=== PATIENT | female | born 1990 | race Caucasian/White ===

== ENCOUNTER 2018-03-13 17:26 | Inpatient (IN) | payer OTHER, MEDICAID ==
[~2018-03-13] VITALS: Ht 168.9 cm; Wt 65.8 kg
[~2018-03-13 17:26] MED LIST: ALB17R INH; AZI250 PO; BENZ200C38 PO; CLI150 PO; CYC10 PO; ESCI20TA38 PO; GUAI-334 PO; GUAI480S48 PO; HYCOTUSS; IBU600 PO; IBU800 PO; KET10 PO; KETO10TA PO; L-NO1TBD6 PO; LEVO50TA86 PO; LIB PO; LOR5 PO; LOR5/325 PO; LOR7.5/325 PO; NAP550 PO; NIF10 PO; NIT100 PO; NO ROUTINE MEDS; NO RTN MEDS; ONDA4TAB9 PO; ONDA8TAB94 PO; PENI-22 PO; PER PO; PRE20 PO; PREN-127 PO; PREN-67 PO; PRENATAL; PRO25 PO; PROM-100 PO; SULF-198 PO; [UNRECOGNIZED DRUG - CODE] TOP; [UNRECOGNIZED DRUG - OTHER]
[2018-03-13] MEDS ORDERED: LR(*) 1000 ML BAG 1,000 ML IV SCH ×2 (18:14→18:31)
[2018-03-13] MEDS ORDERED: FAMOTIDINE(*) 20MG/50ML PREMIX 50 ML IVPB PRN ×2 (18:14→18:31)
[2018-03-13] MEDS ORDERED: OXYTOCIN 30 UNIT/D5LR 500 ML 500 ML IV PRN ×3 (18:14→18:31)
[2018-03-13] MEDS ORDERED: fentaNYL CITR 100 MCG/2 ML AMP IVP PRN ×2 (18:15→18:35)
[2018-03-13] MEDS ORDERED: LIDOCAINE 1% LOCAL 300 MG/30ML INJ PRN ×2 (18:15→18:35)
[2018-03-13] MEDS ORDERED: METOCLOPRAMIDE 10 MG/2 ML SDV IVP PRN ×2 (18:15→18:35)
[2018-03-13] MEDS ORDERED: cefOXitin/DEX(*) 2GM/50ML PREM 50 ML IVPB PRN (18:15)
[2018-03-13] MEDS ORDERED: FLUSH 10 ML SYR IVP PRN ×2 (18:15→18:35)
[2018-03-13] MEDS ORDERED: LIDOCAINE/SOD BICARB 8.4% SYR SC PRN ×2 (18:15→18:35)
[2018-03-13] MEDS ORDERED: FENTANYL/ROPIVACAINE 100 ML BAG EPI PRN (18:20)
[2018-03-13] MEDS ORDERED: fentaNYL CITR 100 MCG/2 ML AMP IT PRN (18:20)
[2018-03-13] MEDS ORDERED: LIDOCAINE/PF 2% 200MG/10ML AMP 200 MG/10 ML AMPUL EPI PRN (18:20)
[2018-03-13] MEDS ORDERED: BUPIVACAINE 0.5% INJ 30ML VIAL EPI PRN (18:20)
[2018-03-13] MEDS ORDERED: ePHEDrine 25 MG/5 ML DISP.SYR IVP PRN (18:20)
[2018-03-13] MEDS ORDERED: LIDO/EPI 2% MPF 1:200,000 20ML EPI PRN (18:20)
[2018-03-13] MEDS ORDERED: BUPIVACAINE 0.25% MPF INJ EPI PRN (18:20)
[2018-03-13] MEDS ORDERED: LIDOCAINE/SOD BICARB 8.4% SYR ONE (18:27)
[2018-03-13] MEDS: LR(*) 1000 ML BAG 1,000 ML IV PRN ×2 (18:28→19:34)
[2018-03-13 18:30] VITALS: BP 136/85; Ht 168.9 cm; Wt 65.8 kg
[2018-03-13] MEDS ORDERED: EPIDURAL KEYS XX PRN (18:30)
[2018-03-13] MEDS ORDERED: LEVOTHYROXINE SOD 0.075 MG TAB PO SCH (18:40)
--- NOTE | 2018-03-13 18:40 | History & Physical ---
History of Present Illness Age of Patient: 27 : 4 Para or TPAL: 3 EDC per LMP: Mar 17, 2018 Estimated Gestational Age: 39.3 Chief Complaint Labor History of Present Illness Presents with regular painful contractions and report that she was 4 cm yesterday and had her membranes stripped. She was scheduled for IOL later this week. This uncomplicated. Her most recent child has VACTERL syndrome. This has been reassuring in u/s scanning and no other issues. She does have hypothyroidism and has been treated and stable in this . Past Medical, Surgical, Family and Obstetric Histories reviewed. Please see ACOG chart. History Patient's Blood Type: A Positive Rubella Status: Immune Group B Strep Screen: Negative Obstetrical History: Vag del x 3 Past Medical History: Hypothyroid Prior Appy and choly History chlamydia, HPV Anxiety Allergies: Coded Allergies: promethazine (Verified Adverse Reaction, Mild, ITCHY/JUMPY, 10/08/15) Med Rec Home Meds Reported Medications Levothyroxine Sodium (LEVOTHYROXINE SODIUM) 50 Mcg Tablet, 50 MCG PO QDAY, TAB 02/25/16 Escitalopram Oxalate (LEXAPRO) 20 Mg Tablet, 10 MG PO QDAY, TAB 02/25/16 [[facility]] No Conflict Check 10/08/15 Review of Systems All Systems Reviewed/Normal: Yes, Except as Noted Exam General Exam General Apperance: Alert/Awake/No Acute Distress Eyes: Normal Extraocular Movement & Vison Cardiovascular: Regular Rate and Rhythm Respiratory: No Respiratory Distress Abdomen: Soft, Non-Tender, Non-Distended, Gravid - Non-Tender Integumentary: Skin Intact without Lesions or Rash Psychological: Alert & Oriented X3 Vaginal Discharge/Fluid?: Clear Fluid (AROM) Cervical Dialation: 5.5 Cervical Effacement (%): 100 Cervical Consistency: Soft Cervical Position: Mid Station: -1 Presentation: Vertex Fetus Heart Tone Variabilty: Moderate FHT Accelerations: 15X15 FHT Category: I Medical Decision Making VTE Prophylasis: Adult Deep Vein Thrombosis/Pulmonary: No Pharmacological Contraindicati: Pt at Low Risk for VTE Mechanical Contraindications: Pt at Low Risk for VTE Assessment and Plan EPIC WILLOW ANALYST Plan: Routine Labor Care Problems: (1) Normal labor Assessment & Plan: Expecting AROM with clear fluid. Desires epidural (2) 40 weeks gestation of DORITA MARQUES MD Mar 13, 2018 18:40
[2018-03-13 18:49] LABS: PLATELET COUNT, AUTOMATED 153 K/uL (150-450)
--- NOTE | 2018-03-13 19:57 | Procedure Note ---
Anesthetic Placement Note Anesthesia Plan: LEB Permit for Anesthesia Signed: Yes Anesthesia Technique: Patient Sitting Anesthesia Prep: Chlorhexidine Interspace: L 2-3 Amount Local - cc's: 3 Anesthesia Needle: 17g Touhy/Schliff Anesthesia Attempts: 1 Loss of Resistance: Air Depth of NICOLE (cm): 4 Catheter Insertion (cm): 5 Catheter Type: Jolly - Spring Wound Epidural Dressing: Tegaderm Anesthesia Tray: Lot Number ([id number]), Expiration Date (2019-04-20), Reference Number ([id number]) Comment: Epidural placed without any problems or complications. Anesthesia Medications: Epidural Test Dose: 1.5 Lido/Epi (1:200,000), Dose - mL (5), Time (1919), Negative Epidural Loading Dose: 0.2% Ropivicaine, With Fentanyl 2mcg/ml, Dose - ml (12) , Time (1925) Epidural Infusion: 0.2% Ropivicaine, With Fentanyl 2mcg/ml, Start Time: (1933) Epidural Pump Setting: Bolus Dose - mL (5), Lockout - Minutes (10), Maintenance Rate - mL/hr (10), Maximum per Hour - mL (20) Complications: None DELILAH NICOLE CRNA Mar 13, 2018 19:57
--- NOTE | 2018-03-13 19:59 | Anesthesia Progress Note ---
Progress/Maintenance Anesthesia Note Date: Mar 13, 2018 Anesthesia Note Time: 19:50 Pain Intensity: 0 Pump: On Pump Rate (ML/HR): 10 Motor Level: Bending Knees-Bilateral Dilatation: 6 Position: Right, Tilt DELILAH NICOLE CRNA Mar 13, 2018 19:59
[2018-03-13] MEDS ORDERED: PREN-127 PO (20:00)
[2018-03-13] MEDS ORDERED: FAMO20TA28 PO (20:01)
[2018-03-13] MEDS: LEVOTHYROXINE SOD 0.075 MG TAB PO SCH (20:32)
[2018-03-13] MEDS ORDERED: ONDANSETRON 4 MG/2 ML VIAL IVP PRN (20:50)
[2018-03-13] MEDS ORDERED: ONDANSETRON 4 MG/2 ML VIAL ONE (20:52)
[2018-03-13] MEDS ORDERED: ACETAMINOPHEN 325 MG TAB PO PRN (23:05)
[2018-03-13] MEDS ORDERED: HYDROCORTISONE 2.5% CR 30GM TB PR PRN (23:05)
[2018-03-13] MEDS ORDERED: INFLUENZA VIRUS VAC 0.5 ML SYR IM ONLY ONE (23:05)
[2018-03-13] MEDS ORDERED: LANOLIN OINT 7 GM TUBE TP PRN (23:05)
[2018-03-13] MEDS ORDERED: DIPHTH/TETANUS/ACEL. PERTUSSIS IM ONE (23:05)
[2018-03-13] MEDS ORDERED: MAGNESIUM HYDROXIDE* 30ML UDCP PO PRN (23:05)
[2018-03-13] MEDS ORDERED: BENZOCAINE 20% 60 ML BTL TP PRN (23:05)
[2018-03-13] MEDS ORDERED: MEASLES,MUMP,RUBELLA VAC 0.5ML SC ONE (23:05)
[2018-03-13] MEDS ORDERED: GLYCERIN/WITCH HAZEL LEAF 1 PK TOP PRN (23:05)
--- NOTE | 2018-03-13 23:14 | OB Delivery Note ---
Delivery Note Vaginal Delivery Type: Spont. Vaginal Delivery Delivery Date: Mar 13, 2018 Delivery Time: 22:52 Estimated Gestational Age(wks): 39 Delivery Anesthesia: Epidural Sex: Male [place] Apgars: 1 Minute (9), 5 Minute (10) Repair Needed: Other (none) Notes: Presented in labor and 5 cm upon arrival. AROM with clear fluid and Pitocin augmentation. 6 cm by 2000 and complete dilation at 2230. Pt set up in dorsal lithotomy position and over 2 contractions, pushing delivered head in JORGE position over intact perineum. Placenta delivered intact and spontaneous. No complications. Strategic Client Executive in Attendence: No Copies to: DORITA MARQUES MD, TRAVIS MD Mar 13, 2018 23:14
--- NOTE | 2018-03-13 23:15 | Anesthesia OB Pre-Anes Eval ---
History of Present Illness Anesthesia Start Date: Mar 13, 2018 Anesthesia Start Time: 19:05 OB Anesthesia Diagnosis: spontaneous labor Result Diagram: 03/13/18 1833 Weight (Pounds): 145 Past Medical History Medical History: no pertinent history, other (hypothyroid) Surgical History: appendectomy Previous Anesthesia: general, epidural Attended Childbirth Classes?: No Hx Anesthesia Reactions: No Hx Family Anesthesia Reaction: No Home Meds Reported Medications Famotidine (PEPCID) 20 Mg Tablet, 20 MG PO QDAY, #10 TAB 03/13/18 Vits W-Ca,Fe,Fa(<1MG) ( VITAMINS) 1 Each Tablet, 1 EACH PO DAILY, TAB 03/13/18 Levothyroxine Sodium (LEVOTHYROXINE SODIUM) 50 Mcg Tablet, 75 MCG PO QDAY, TAB 02/25/16 Discontinued Reported Medications Escitalopram Oxalate (LEXAPRO) 20 Mg Tablet, 10 MG PO QDAY, TAB 02/25/16 [[facility]] No Conflict Check 10/08/15 Allergies: Coded Allergies: promethazine (Verified Adverse Reaction, Mild, ITCHY/JUMPY, 10/08/15) Anesthesia OB ROS Airway Class: l GI ROS: clear liquids Last Solids Date: Mar 13, 2018 Last Solids Time: 12:30 Endocrine ROS: thyroid disorder ASA Classification: 2, E Assessment and Plan Anesthesia Plan: LEB Assessment previous epidural without complications. She agrees to proceed. Anesthesia Stop Day: Mar 13, 2018 Anesthesia Stop Time: 23:15 DELILAH NICOLE CRNA Mar 13, 2018 19:45
--- NOTE | 2018-03-13 23:19 | Anesthesia Progress Note ---
Progress/Maintenance Anesthesia Note Date: Mar 13, 2018 Anesthesia Note Time: 23:15 Pain Intensity: 0 Pump: Off Anesthesia Treatment: delivered. pump stopped. DELILAH NICOLE CRNA Mar 13, 2018 23:19
[2018-03-14] MEDS: IBUPROFEN 800 MG TAB PO SCH ×3 (00:52→16:51)
[2018-03-14 02:55] VITALS: BP 111/65
[2018-03-14 07:25] VITALS: BP 114/74
[2018-03-14] MEDS: DOCUSATE CALCIUM 240 MG CAP PO SCH ×2 (09:37→22:34)
[2018-03-14] MEDS: APAP/HYDROCODONE 325/5 TAB PO PRN ×2 (10:32→19:59)
--- NOTE | 2018-03-14 10:47 | OB/GYN Progress Note ---
OB Subjective Progress Notes Subjective Doing well. Pain controlled and ambulating to BR well. Resting comfortable. GI: NEG Nausea : Voiding Well Pain: Mild OB Objective Physical Exam Vital Signs Date Time Temp Pulse Resp B/P (MAP) Pulse Ox O2 Delivery O2 Flow Rate FiO2 03/14/18 07:25 97.9 57 18 114/74 (87) 95 Room Air Intake and Output 03/15/18 07:00 # Voids 1 General Appearance: Alert/Awake/No Acute Distress Eyes: Normal Extraocular Movement & Vison Cardiovascular: Normal Rhythm & Peripheral Pulses, Regular Rate and Rhythm Respiratory: No Respiratory Distress, Clear to Auscultation Abdomen: Soft, Non-Tender, Non-Distended, Fundus Firm, Non-Tender Integumentary: Skin Intact without Lesions or Rash Psychological: Alert & Oriented X3, Appropriate Mood & Affect Result Diagram: 03/14/18 0709 Assessment and Plan SCRAP WHEELER Plan: Routine Post- Care Problems: (1) Normal labor (2) 40 weeks gestation of (3) care and examination immediately after delivery DORITA MARQUES MD Mar 14, 2018 10:47
[2018-03-14 13:40] VITALS: BP 121/79
[2018-03-14 16:50] VITALS: BP 116/89
[2018-03-14 20:00] VITALS: BP 112/72
[2018-03-14] MEDS: LEVOTHYROXINE SOD 0.075 MG TAB PO SCH (22:34)
[2018-03-15] MEDS: IBUPROFEN 800 MG TAB PO SCH ×2 (00:54→09:22)
[2018-03-15 04:00] VITALS: BP 117/57
[2018-03-15] MEDS: APAP/HYDROCODONE 325/5 TAB PO PRN (07:39)
[2018-03-15 07:40] VITALS: BP 112/71
--- NOTE | 2018-03-15 08:39 | OB/GYN Progress Note ---
OB Subjective Progress Notes Subjective Doing well. Pain controlled and bleeding light. Ambulating and voiding well. GI: NEG Nausea : Voiding Well Pain: Mild OB Objective Physical Exam Vital Signs Date Time Temp Pulse Resp B/P (MAP) Pulse Ox O2 Delivery O2 Flow Rate FiO2 03/15/18 04:00 98.1 75 18 117/57 (77) 94 03/14/18 20:00 Room Air General Appearance: Alert/Awake/No Acute Distress Eyes: Normal Extraocular Movement & Vison Cardiovascular: Normal Rhythm & Peripheral Pulses, Regular Rate and Rhythm Respiratory: No Respiratory Distress, Clear to Auscultation Abdomen: Soft, Non-Tender, Non-Distended, Fundus Firm, Non-Tender Integumentary: Skin Intact without Lesions or Rash Psychological: Alert & Oriented X3, Appropriate Mood & Affect Result Diagram: 03/14/18 0709 Assessment and Plan BUSINESS DEVELOPMENT ANALYST Plan: Routine Post- Care Problems: (1) Normal labor (2) 40 weeks gestation of (3) care and examination immediately after delivery Assessment & Plan: Reviewed care and instruction. Precautions agains bleeding and pain. DORITA MARQUES MD Mar 15, 2018 08:39
[2018-03-15] MEDS ORDERED: IBUP800T37 PO (08:40)
[2018-03-15] MEDS ORDERED: LOR5/325 PO (08:40)
--- NOTE | 2018-03-15 08:42 | OB/GYN Discharge Summary ---
Discharge Summary Reason for Hosp/Final Diag: (1) Normal labor (2) 40 weeks gestation of (3) care and examination immediately after delivery Hospital Course & Plan: Reviewed care and instruction. Precautions agains bleeding and pain. Lates Vital Signs Vital Signs Date Time Temp Pulse Resp B/P (MAP) Pulse Ox O2 Delivery O2 Flow Rate FiO2 03/15/18 04:00 98.1 75 18 117/57 (77) 94 03/14/18 20:00 Room Air Weight (Pounds): 145 Result Diagram: 03/14/18 0709 Condition: Improved Discharge: Home, Self Jail Meds Active Scripts Hydrocodone Bit/Acetaminophen (HYDROCODON-ACETAMINOPHEN 5-325) 1 Each Tablet, 1- 2 EACH PO Q4H Y for PAIN, #14 TAB 0 Refills Prov:AMAURI PEMBERTON MD 03/15/18 Reported Medications Famotidine (PEPCID) 20 Mg Tablet, 20 MG PO QDAY, #10 TAB 03/13/18 Vits W-Ca,Fe,Fa(<1MG) ( VITAMINS) 1 Each Tablet, 1 EACH PO DAILY, TAB 03/13/18 Levothyroxine Sodium (LEVOTHYROXINE SODIUM) 50 Mcg Tablet, 75 MCG PO QDAY, TAB 02/25/16 Discontinued Reported Medications Escitalopram Oxalate (LEXAPRO) 20 Mg Tablet, 10 MG PO QDAY, TAB 02/25/16 [-[facility]] No Conflict Check 10/08/15 Follow up Referrals: CREAM RIPENER - In 6 Weeks @ [facility] with Amauri Pemberton Md Follow up with: Dr. Pemberton [phone] Follow up in: 6 wks PP or PO Discharge Diet: As Tolerates Discharge Activity: As Tolerates, No Heavy Lifting x 6 wks, No Heavy Lifting > 10lb, Pelvic Rest Copies to: AMAURI PEMBERTON MD, TRAVIS MD Mar 15, 2018 08:42
[2018-03-15] MEDS: DOCUSATE CALCIUM 240 MG CAP PO SCH (09:22)
[2018-03-15 11:25] VITALS: BP 123/86
--- NOTE | 2018-03-16 02:39 | Anesthesia Post Eval Note ---
Anesthesia Post Eval Note Pt able to participate in Eval: Yes Cardiovascular Status: Satisfactory Respiratory Status: Satisfactory Pain Managment: Satisfactory PO Nausea/Vomiting: Satisfactory Temperature Management: Satisfactory Mental Status: Satisfactory Post-Op Hydration Status: Satisfactory Anesthesia Type: LEB Anesthesia Tolerance: Late entry. Post visit was done on 03-14-2018 around 0900. Pt. doing well no problems noted. DELILAH NICOLE CRNA Mar 16, 2018 02:39
== END 2018-03-15 14:50 | disposition home or self-care (01) | DRG 775 ==
LOC: OB 17:26
PROVIDERS: ADMIT Obstetrics & Gynecology; ATTEND Obstetrics & Gynecology
PROC: 10E0XZZ Delivery of Products of Conception, External Approach (ICD-10-PCS; principal; 2018-03-13)
PROC: 10907ZC Drainage of Amniotic Fluid, Therapeutic from Products of Conception, Via Natural or Artificial Opening (ICD-10-PCS; 2018-03-13)
DX: O99.284 Endocrine, nutritional and metabolic diseases complicating childbirth (principal); O99.344 Other mental disorders complicating childbirth; E03.9 Hypothyroidism, unspecified; F41.9 Anxiety disorder, unspecified; Z37.0 Single live birth; Z3A.39 39 weeks gestation of pregnancy; Z88.8 Allergy status to other drugs, medicaments and biological substances; Z90.49 Acquired absence of other specified parts of digestive tract
CPT/HCPCS: 36415; 85025; 85027; 86850; 86900; 86901; J2405; J2590; J7120

== ENCOUNTER 2018-06-16 01:36 | Inpatient (IN) | payer OTHER, MEDICAID ==
[~2018-06-16] VITALS: Ht 170.2 cm; Wt 83.9 kg
[2018-06-16] VITALS (14 sets, daily range): BP systolic 102–144; BP diastolic 53–83
[~2018-06-16 01:36] MED LIST changes: +FAMO20TA28 PO; +IBUP800T37 PO
[2018-06-16] MEDS ORDERED: MIDAZOLAM 2 MG/2 ML VIAL IVP PRN (06:30)
[2018-06-16] MEDS ORDERED: NORMOSOL R SOLN(*) 1000 ML BAG 1,000 ML IV PRN (06:30)
[2018-06-16] MEDS ORDERED: LIDOCAINE/SOD BICARB 8.4% SYR ID ONE (06:30)
[2018-06-16] MEDS ORDERED: cefOXitin/DEX(*) 2GM/50ML PREM 50 ML IVPB ONE (10:15)
[2018-06-16] MEDS ORDERED: PHENAZOPYRIDINE 200 MG TAB PO ONE (10:15)
[2018-06-16] MEDS ORDERED: FAMOTIDINE 20 MG/50 ML PREMIX IVPB ONE (10:50)
[2018-06-16 12:07] LABS: PLATELET COUNT, AUTOMATED 307 K/uL (150-450)
[2018-06-16] MEDS ORDERED: fentaNYL CITR 250 MCG/5 ML AMP ONE (12:22)
[2018-06-16] MEDS ORDERED: PROPOFOL EMUL(*) 10MG/ML 20 ML 20 ML ONE (12:24)
[2018-06-16] MEDS ORDERED: LIDOCAINE MPF 1% 5 ML VIAL ONE (12:24)
[2018-06-16] MEDS ORDERED: DEXAMETHASONE SOD PHOS 10MG/ML ONE (12:24)
[2018-06-16] MEDS ORDERED: ONDANSETRON 4 MG/2 ML VIAL ONE (12:24)
[2018-06-16] MEDS ORDERED: KETAMINE HCL 200 MG/20 ML MDV ONE (12:25)
[2018-06-16] MEDS ORDERED: FAMOTIDINE 20 MG TAB PO ONE (12:25)
[2018-06-16] MEDS ORDERED: SCOP1PAT16 TOP (12:45)
[2018-06-16] MEDS ORDERED: NS 0.9% 20 ML SDV 20 ML ONE (13:04)
[2018-06-16] MEDS ORDERED: HALOPERIDOL LACT 5 MG/ML VIAL IM ONE (13:07)
[2018-06-16] MEDS ORDERED: ACETAMINOPHEN(*)1000 MG/100 ML 100 ML IVPB ONE (13:07)
[2018-06-16] MEDS ORDERED: IBUP800T37 PO (13:26)
[2018-06-16] MEDS ORDERED: OXYC-865 PO (13:26)
[2018-06-16] MEDS ORDERED: DOCU-416 PO (13:27)
[2018-06-16] MEDS ORDERED: ROPIVACAINE 0.2% 20 ML VIAL ONE (13:47)
[2018-06-16] MEDS ORDERED: HYDROmorphone HCL 2 MG/ML SDV ONE (14:03)
[2018-06-16] MEDS ORDERED: ESTROGENS CONJ VAG CREAM 30 GM TUBE PV ONE (14:22)
[2018-06-16] MEDS ORDERED: NS(*) 0.9% 100 ML BAG 100 ML ONE (14:22)
[2018-06-16] MEDS ORDERED: VASOPRESSIN 20 UNIT/ML VIAL ONE (14:22)
[2018-06-16] MEDS ORDERED: SUGAMMADEX SOD 200 MG/2 ML SDV ONE (16:27)
[2018-06-16] MEDS ORDERED: KETOROLAC 30 MG/ML VIAL ONE (16:52)
[2018-06-16] MEDS ORDERED: SULF-198 PO (17:13)
[2018-06-16] MEDS ORDERED: SIMETHICONE 80 MG CHEW CHEW PRN (17:15)
[2018-06-16] MEDS ORDERED: ZOLPIDEM TARTRATE 10 MG TAB PO PRN (17:15)
[2018-06-16] MEDS ORDERED: PROMETHAZINE 25 MG/ML 1 ML AMP IVP PRN (17:15)
--- NOTE | 2018-06-16 17:25 | Post Operative Note ---
Operative Note - TILE FINISHER Operative Day Date: Jun 16, 2018 Time: 17:23 Physicians Surgeon: Niecy Trace Evidence Technician: Araceli Velazquez Anesthesia: GETA Diagnosis Pre-Op Diagnosis: Dysmenorrhea Menometrorrhagia Rectocele THALIA Post-Op Diagnosis: same Procedure Procedure(s): RATLH bilateral salpingectomy cystoscopy posterior colporrhaphy Transobturator midurethropexy sling Specimen Removed:(Maybe N/A): uterus, tubes Complications: [id number] Fluids Fluids: 2000 ml Estimated Blood Loss: 100 ml Dictated Date OP Note Dictated: Jun 16, 2018 Time OP Note Dictated: 17:25 Copies to: DORITA MARQUES MD ; DORITA MARQUES MD Jun 16, 2018 17:25
[2018-06-16] MEDS ORDERED: fentaNYL CITR 100 MCG/2 ML AMP ONE ×2 (17:27→17:48)
[2018-06-16] MEDS: DLR(*) 1000 ML BAG 1,000 ML IV PRN (19:34)
--- NOTE | 2018-06-16 20:01 | OPERATIVE REPORT 1 ---
EVENT DATE: June 16, 2018 SURGEON: Amauri Pemberton MD ANESTHESIOLOGIST: Jadon Londono MD ANESTHESIA: General endotracheal. HITCH TECHNICIAN: Araceli Velazquez PA-C PREOPERATIVE DIAGNOSES 1. Stress urinary incontinence. 2. Outlet dysfunction and constipation. 3. 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 4. Rectocele. 5. Secondary dysmenorrhea. 6. Excessive and frequent irregular menstruation. POSTOPERATIVE DIAGNOSES 1. Stress urinary incontinence. 2. Outlet dysfunction and constipation. 3. 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 4. Rectocele. 5. Secondary dysmenorrhea. 6. Excessive and frequent irregular menstruation. PROCEDURES PERFORMED 1. Robotic-assisted total laparoscopic hysterectomy. 2. Bilateral salpingectomy. 3. Diagnostic cystoscopy. 4. Posterior colporrhaphy. 5. Transobturator sling mid urethropexy. ESTIMATED BLOOD LOSS 100 mL FLUIDS 2000 mL IV crystalloid URINE OUTPUT Clear. FINDINGS Enlarged retroflexed uterus. Normal-appearing ovaries, tubes. Normal right upper quadrant. Bladder without visible injuries, and ureteral patency confirmed post procedure bilaterally. PROCEDURE IN DETAIL The patient was brought to the operating room with a working IV, placed in the dorsal supine position. She was placed under general endotracheal anesthesia and then prepped and draped in the usual sterile fashion. She was moved to the dorsal lithotomy position. A weighted speculum was placed in the vagina. The cervix was grasped on the anterior lip with a single tooth tenaculum. It was sounded to a depth of 8 to 9 cm, retroverted. A large VCare uterine manipulating device was selected and assembled. The cervix was dilated to a size 8 Hegar dilator. The VCare was passed through the cervix into the uterus, bulb inflated and secured. All instruments were then removed. The green VCare colpotomy cup was sutured against the cervix. The blue pneumoperitoneum cup was approximated against the green and locked into position. A Cuadra catheter was placed. Legs were brought back to the supine position, and gloves were changed. The target anatomy was more than 12 cm below the umbilicus; therefore, an umbilical 8 mm stab incision was made after infiltrating the 0.2% Naropin. A Veress needle was passed through this incision while stabilizing the anterior abdominal wall. A pneumoperitoneum was created to an intra-abdominal pressure of 20 mmHg. The laparoscope was inserted through this port, and the pelvis and abdomen were inspected with the above findings noted. Additional ports were placed as follows: Robotic 8 mm port 8 cm left lateral to the umbilicus, and 7 cm lateral to this one an 11 mm entry level assistant manager port. There were two additional 8 mm robotic ports placed right lateral at the umbilicus spaced at 8 cm apart. Each were placed under direct visualization under a similar technique and without incident. The patient was then moved to the Trendelenburg position. Bowel was moved away. The pelvis was inspected. Normal-appearing ovaries bilaterally. Enlarged uterus, retroflexed. Probable uterine varicosities as there did appear to be pelvic congestion. The robot was then brought into position, and the #2 port was docked, and the camera was placed. It was brought into the abdomen, and target anatomy was visualized. A targeting procedure was performed and completed. The remaining arms were docked, and instruments were assembled and passed into the abdomen under direct visualization with the scope. Once all in place, I scrubbed out from the sterile field and presented at the console. Hysterectomy proceeded as follows: The right fallopian tube was grasped and elevated. It was dissected away from the mesosalpinx connection using the vessel sealer up to the utero-ovarian ligament which was cauterized and transected with the vessel sealer. The round ligament was then cauterized and transected, entering the broad ligament which was into anterior and posterior leaflets. The anterior leaflet was followed along anteriorly, deflecting the bladder away from the colpotomy cup that was bulging beneath. The posterior peritoneum was stripped away, skeletonizing the uterine vasculature in that location. The uterine vessels were then cauterized and transected with the Gyrus device on a perpendicular angle. Parallel bites were then taken along the length of the uterus and the cervix, dissecting the uterine vasculature away from the uterus. Once we reached the colpotomy cup, an anterior colpotomy was performed, and we proceeded on the left side in a likewise fashion, dissecting the fallopian tube away from the mesosalpinx, transecting the utero-ovarian ligament and the round ligament with the vessel sealer, and entering the broad ligament. The anterior leaflet was dissected, completing the anterior dissection and pushing the bladder well away from the operative area. Posteriorly, the peritoneum was taken down to the uterosacral ligament, and the vessels were skeletonized. The uterine vasculature was taken at a perpendicular angle, cauterized with the vessel sealer, and transected, and then parallel bites along the length of the uterus and cervix were performed to further dissect away the uterine vasculature. The colpotomy incision was further extended to the left side and in a circumferential fashion completed through the uterosacral ligaments posteriorly and around to the other side, freeing the uterus from the vaginal connection. The uterus was then removed through the vagina, and irritation and suction were performed. There were some small bleeders along the vaginal angle on both sides which received a light amount of bipolar cautery. An 0 Vicryl was then used to close the angle stitches in a [id number] fashion, incorporating the ipsilateral uterosacral ligament. This achieved hemostasis in both locations. The remaining vaginal cuff was repaired with a 2-0 V-Loc suture, and the pelvis was irrigated and suctioned dry. No visible bleeders. No visible complications. Therefore, this portion of the procedure was completed, and I scrubbed back into the sterile field while the abdominal incisions were repaired with a single interrupted stitch of the fascia for the 11 mm port, utilizing the Arron-Ramesh device. Pneumoperitoneum was suctioned out, and the remaining skin incisions were repaired with 4-0 Monocryl simple subdermal. Diagnostic cystoscopy was performed at this time to confirm ureteral patency which was confirmed bilaterally. No visible bladder injuries. The Cuadra catheter was replaced. We proceeded with the posterior repair. The incision was marked along the length of the defect in the midline, and a aramis-shaped wedge resection of the perineum was performed to complete a perineoplasty. The incision along the length of the vagina was dissected after infiltrating with diluted pitressin solution. Dissection laterally revealed the defect and an excellent exposure of the endopelvic fascia. A single pursestring stitch was performed to reduce the size of the defect, followed by Melissa plication stitches along its entire length. A finger then was inserted into the rectum to palpate for site-specific repair, and there were no areas that were deficient. Therefore, gloves were changed. Excess vagina was trimmed away, and the vagina was repaired with a 2-0 Vicryl in a running locking stitch. The perineoplasty was completed as is typical for a second-degree obstetrical repair. At this point, a weighted speculum was placed in the vagina. The Cuadra catheter was used to identify the mid urethra. A linear incision approximately 2 cm in length was made in the mid urethra and dissected laterally after bringing the legs to a 45-degree angle, dissected laterally towards the transobturator fossa. A puncture incision was made overlying the transobturator fossa level with the clitoris on both sides. Once dissection was complete, the sling hook was passed, palpating internally through the transobturator membrane in the medial pubic rami rotated to a 45- degree angle and continued along its length into the vaginal dissection. The sling material was attached to this introducing hook and pulled back through. The same procedure was followed on the contralateral side. Cuadra catheter was again removed, and diagnostic cystoscopy was again performed to confirm no bladder punctures. Once confirmed the bladder was intact without injury, Cuadra catheter was replaced, and the mesh was pulled back through. One cm segment of folded mesh was grasped with a Umu clamp and approximated against the Cuadra catheter while the remaining mesh was tensioned. Once this was released, this easily allowed the passage of a curved Rinaldi scissor beneath the urethra. Therefore, it was tension-free, but approximated such that it would correct any stress urinary incontinence. The remaining vaginal incision was repaired with a 2-0 Vicryl in a running locking stitch. Inspection of the vaginal incision again revealed a few small bleeders along the incision edge which received a [id number] stitch of 2-0 Vicryl in three separate locations. Once hemostatic, the vagina was packed with a Kerlix sponge moistened with Premarin cream. The groin puncture incisions were covered with Dermabond skin adhesive. Cuadra catheter was left indwelling and to gravity. Her legs were brought back to the supine position. She was awakened from general anesthesia in stable condition and taken to Recovery. Sponge, lap, needle, and instrument counts were all correct times three. ADELE
[2018-06-16] MEDS ORDERED: NS 0.9% IVPB SCH (21:40)
[2018-06-16] MEDS ORDERED: TRANEXAMIC AC IVPB SCH (21:40)
[2018-06-16] MEDS: FAMOTIDINE 20 MG TAB PO SCH (22:18)
[2018-06-16] MEDS: DOCUSATE CALCIUM 240 MG CAP PO SCH (22:18)
[2018-06-16] MEDS: ONDANSETRON 4 MG/2 ML VIAL IV PRN (22:43)
[2018-06-16] MEDS: KETOROLAC 30 MG/ML VIAL IVP SCH (22:43)
[2018-06-17] VITALS (13 sets, daily range): BP systolic 97–124; BP diastolic 46–77; Ht 170.2 cm; Wt 83.9 kg
[2018-06-17 01:06] LABS: PLATELET COUNT, AUTOMATED 253 K/uL (150-450)
[2018-06-17] MEDS: DLR(*) 1000 ML BAG 1,000 ML IV PRN ×4 (01:13→22:02)
[2018-06-17] MEDS: ACETAMINOPHEN 325 MG TAB PO PRN ×2 (01:44→05:40)
[2018-06-17] MEDS: KETOROLAC 30 MG/ML VIAL IVP SCH ×2 (05:04→11:21)
[2018-06-17] MEDS: LEVOTHYROXINE SOD 0.075 MG TAB PO SCH (05:39)
[2018-06-17] MEDS: ONDANSETRON 4 MG/2 ML VIAL IV PRN ×3 (05:40→20:05)
[2018-06-17 06:04] LABS: PLATELET COUNT, AUTOMATED 263 K/uL (150-450)
[2018-06-17] MEDS: HYDROmorphone HCL 2 MG TAB PO PRN ×3 (07:48→19:01)
[2018-06-17] MEDS ORDERED: LIDOCAINE 1% LOCAL 300 MG/30ML 0 ML ONE (08:36)
[2018-06-17] MEDS: FAMOTIDINE 20 MG TAB PO SCH ×2 (09:00→21:37)
--- NOTE | 2018-06-17 09:28 | OB/GYN Progress Note ---
OB Subjective Progress Notes Subjective had more than average bleeding last night, presumed to be from vaginal surgical edges from sling. Pressure placed on external genitalia and trexaminic acid ordered to assist with clotting. This morning report was that she is light headed to sit up. Pt reports headache and left side abdominal pain near the captain's assistant port, which is common. Vitals have been stable through night and good urine output. Pt dropped hgb from 13.5 to 10.5 today with dilution and blood loss. Pt has been nauseated and had vomited several times in the night. GI: NEG Nausea : Voiding Well Pain: Moderate OB Objective Physical Exam Vital Signs Date Time Temp Pulse Resp B/P (MAP) Pulse Ox O2 Delivery O2 Flow Rate FiO2 06/17/18 05:12 70 97 06/17/18 05:11 106/54 (71) Nasal Cannula 0.5 06/17/18 03:08 98.4 16 Intake and Output 06/17/18 07:00 Intake Total 7672 ml Output Total 1980 ml Balance 5692 ml Intake Oral 200 ml IV Total 4522 ml Other 2950 ml Output Urine Total 1275 ml Emesis 225 ml Estimated Blood Loss 380 ml Other 100 ml # Emeses 4 General Appearance: Alert/Awake/No Acute Distress Neurological: No Gross deficits Cardiovascular: Normal Rhythm & Peripheral Pulses Respiratory: No Respiratory Distress Abdomen: Soft, Non-Tender, Non-Distended (appropriate surgical tenderness) Incision: Clean, Dry, Intact, Dermabond : Other (vaginal packing soaked with clot that came out after, all dark blood) Extremities: No Cyanosis,Clubbing or Edema Integumentary: Skin Intact without Lesions or Rash Psychological: Alert & Oriented X3 Result Diagram: 06/17/18 0520 Assessment and Plan Problems: (1) Other specified aftercare following surgery Assessment & Plan: s/p RATLH, BS, Posterior repair, TO sling Removing vaginal packing revealed more bleeding than I am comfortable with. Pt taken to the procedure room for internal exam. Speculum exam revealed old clot in the vagina which was suctioned out. Suture edges and vaginal cuff inspected and no significant active bleeding seen. No pooling of blood noted. All in cisions intact. Vagina packed again with Kerlex sponge moistened with Premarin cream. Will obtain u/s of pelvis looking for free fluid or signs of bleeding. My suspicion is her orthostatic symptoms are from preexisting anemia worsened by dilution and the blood loss vaginally from suture edges or cuff which is now clotting off. Will monitor for more anemia and consider transfusion if continues symptomatic. Anticipate removing packing tonight or in AM. (2) History of robot-assisted laparoscopic hysterectomy DORITA MARQUES MD Jun 17, 2018 09:28
[2018-06-17] MEDS ORDERED: ESTROGENS CONJ VAG CREAM 30 GM TUBE PV ONE (09:30)
[2018-06-17] MEDS ORDERED: TRANEXAMIC AC IVPB ONE (10:00)
[2018-06-17] MEDS ORDERED: NS 0.9% IVPB ONE (10:00)
[2018-06-17] MEDS: DOCUSATE CALCIUM 240 MG CAP PO SCH ×2 (10:10→21:37)
--- NOTE | 2018-06-17 10:36 | RADIOLOGY IMAGING REPORT ---
FACILITY: [facility] [place] PATIENT NAME: Abiola Ritchie : 1990 MR: [id number] V: [id number] EXAM DATE: ORDERING PHYSICIAN: DORITA MARQUES TECHNOLOGIST: Location: [facility] [place] Patient: Abiola Ritchie : 1990 Visit/Account:[id number] Date of Sevice: 06/17/2018 PELVIC LTD OR F/U HISTORY: Postoperative bleeding, s/p robotic hyst, vag repair TECHNIQUE: Transabdominal ultrasound pelvis. COMPARISON: Pelvic ultrasound October 18, 2010 FINDINGS: Uterus is surgically absent. There is a hypoattenuating collection within the pelvic cul-de-sac measuring 3.5 x 3.8 x 5.3 cm which could represent clot. There is no internal vascular flow. There is a curvilinear echogenic structu re seen anteriorly with some acoustic shadowing may represent surgical sutures. Ovaries: Right - 4.4 x 1.8 x 3.8 cm Left - 3.2 x 3.4 x 1.6 cm Blood flow is documented in each ovary by duplex Doppler ultrasound. Adnexa: Grossly unremarkable. Free pelvic fluid: None. IMPRESSION: Patient is status post hysterectomy. There is a 3.5 x 3.8 x 5.3 cm hypoattenuating collection in the pelvic cul-de-sac which could represent clot. There is no internal vascular flow. Report Dictated By: Rea Shetty MD at 06/17/2018 10:26 AM Report E-Signed By: Rea Shetty MD at 06/17/2018 10:32 AM WSN:[email or web address]
[2018-06-17 12:56] LABS: PLATELET COUNT, AUTOMATED 241 K/uL (150-450)
[2018-06-17] MEDS: IBUPROFEN 800 MG TAB PO PRN (18:06)
[2018-06-17 18:08] LABS: PLATELET COUNT, AUTOMATED 223 K/uL (150-450)
[2018-06-18] VITALS (12 sets, daily range): BP systolic 108–127; BP diastolic 50–76
[2018-06-18 00:10] LABS: PLATELET COUNT, AUTOMATED 178 K/uL (150-450)
[2018-06-18] MEDS: IBUPROFEN 800 MG TAB PO PRN (03:31)
[2018-06-18] MEDS: HYDROmorphone HCL 2 MG TAB PO PRN ×2 (04:26→12:14)
[2018-06-18] MEDS: ONDANSETRON 4 MG/2 ML VIAL IV PRN ×2 (05:18→21:48)
[2018-06-18 05:52] LABS: PLATELET COUNT, AUTOMATED 176 K/uL (150-450)
[2018-06-18] MEDS: LEVOTHYROXINE SOD 0.075 MG TAB PO SCH (06:05)
[2018-06-18] MEDS: DLR(*) 1000 ML BAG 1,000 ML IV PRN (06:05)
[2018-06-18] MEDS ORDERED: ACETAMINOPHEN(*)1000 MG/100 ML 100 ML IVPB ONE (08:30)
[2018-06-18] MEDS: FERROUS SULFATE 325 MG TAB PO SCH (09:00)
[2018-06-18] MEDS: DOCUSATE CALCIUM 240 MG CAP PO SCH ×2 (09:00→20:48)
[2018-06-18] MEDS: FAMOTIDINE 20 MG TAB PO SCH ×2 (09:00→20:49)
[2018-06-18] MEDS ORDERED: INFLUENZA VIRUS VAC 0.5ML SYR IM ONLY ONE (09:00)
[2018-06-18] MEDS ORDERED: METOCLOPRAMIDE 10 MG TAB PO PRN (09:15)
--- NOTE | 2018-06-18 09:21 | OB/GYN Progress Note ---
OB Subjective Progress Notes Subjective Surgical pain is much better now, and has had minimal bleeding vaginally. Still orthostatic and now this AM withe severe headache. Feels lightheaded often. Has only gotten up in the room. Cuadra catheter in place. GI: POS Nausea (especially with Percocet) : Voiding Well (per catheter) Pain: Mild OB Objective Physical Exam Vital Signs Date Time Temp Pulse Resp B/P (MAP) Pulse Ox O2 Delivery O2 Flow Rate FiO2 06/18/18 03:23 98.6 16 108/50 (69) 91 Room Air 06/17/18 23:05 81 0.5 Intake and Output 06/18/18 07:00 Intake Total 3774 ml Output Total 2850 ml Balance 924 ml Intake Oral 370 ml IV Total 3404 ml Output Urine Total 2850 ml General Appearance: Alert/Awake/No Acute Distress Neurological: No Gross deficits Cardiovascular: Normal Rhythm & Peripheral Pulses, Regular Rate and Rhythm Respiratory: No Respiratory Distress, Clear to Auscultation Abdomen: Soft, Non-Tender, Non-Distended (appropriate surgical tenderness) Incision: Clean, Dry, Intact, Dermabond : Other (repeat vaginal packing removed with scant blood stain) Extremities: No Cyanosis,Clubbing or Edema Integumentary: Skin Intact without Lesions or Rash Psychological: Alert & Oriented X3 Result Diagram: 06/18/18 0522 Assessment and Plan Problems: (1) Other specified aftercare following surgery (2) History of robot-assisted laparoscopic hysterectomy (3) Anemia due to acute blood loss Assessment & Plan: Discussed transfusion. Her symptoms should improve, energy levels and ability to care for her as well as headaches. She agrees and desires. Transfusion risk of 1/300,000 of blood born infection but more often for acute allergic reaction. (4) Anemia due to chronic blood loss DORITA MARQUES MD Jun 18, 2018 09:21
[2018-06-18] MEDS ORDERED: diphenhydrAMINE 50 MG/ML VIAL IVP ONE (09:30)
[2018-06-18] MEDS ORDERED: NS(*) 0.9% 500 ML BAG 500 ML ONE (11:25)
[2018-06-18] MEDS: ACETA/BUTAL/CAFF 325/50/40 TAB PO PRN ×2 (14:29→20:49)
[2018-06-18 20:48] LABS: PLATELET COUNT, AUTOMATED 198 K/uL (150-450)
[2018-06-18] MEDS ORDERED: FERROUS SULFATE 325 MG TAB PO ONE (20:50)
[2018-06-18] MEDS ORDERED: ACETAMINOPHEN 500 MG TAB PO ONE (21:15)
[2018-06-18] MEDS ORDERED: ACETA/BUTAL/CAFF 325/50/40 TAB PO PRN (21:25)
[2018-06-18] MEDS ORDERED: AMPICILLIN/SULBACTAM 3 GM VIAL ONE (22:40)
[2018-06-18] MEDS ORDERED: NS(*) 0.9% 100 ML BAG 100 ML ONE (22:40)
[2018-06-18] MEDS: AMPICILLIN/SULBACT (*) 3 GM VL 3 GM in NS(*) 0.9% 100 ML BAG 100 ML IVPB SCH (22:59)
[2018-06-19] MEDS ORDERED: ACETAMINOPHEN 500 MG TAB PO ONE (03:15)
[2018-06-19] MEDS: AMPICILLIN/SULBACT (*) 3 GM VL 3 GM in NS(*) 0.9% 100 ML BAG 100 ML IVPB SCH ×2 (03:52→10:00)
[2018-06-19 03:56] VITALS: BP 107/64
[2018-06-19] MEDS: LEVOTHYROXINE SOD 0.075 MG TAB PO SCH (06:18)
[2018-06-19 07:23] LABS: PLATELET COUNT, AUTOMATED 186 K/uL (150-450)
[2018-06-19] MEDS: DOCUSATE CALCIUM 240 MG CAP PO SCH (09:00)
[2018-06-19] MEDS: FAMOTIDINE 20 MG TAB PO SCH (09:00)
[2018-06-19] MEDS: FERROUS SULFATE 325 MG TAB PO SCH (09:00)
[2018-06-19 09:30] VITALS: BP 107/92
[2018-06-19] MEDS: ONDANSETRON 4 MG/2 ML VIAL IV PRN (10:36)
--- NOTE | 2018-06-19 11:06 | OB/GYN Progress Note ---
OB Subjective Progress Notes Subjective Doing much better. Still gets a little light headed when gets up and consequently, a little nauseated. Zofran helps though. Voiding well with a urine stream not as strong as when she came. Feeling able to go home. GI: POS Nausea (OFF AND ON) : Voiding Well Pain: Mild OB Objective Physical Exam Vital Signs Date Time Temp Pulse Resp B/P (MAP) Pulse Ox O2 Delivery O2 Flow Rate FiO2 06/19/18 09:30 98.6 82 16 107/92 (97) 94 Room Air 06/19/18 03:56 1.0 Intake and Output 06/19/18 07:00 Intake Total 1840 ml Output Total 4000 ml Balance -2160 ml Intake Oral 440 ml IV Total 900 ml Blood Product 500 ml Output Urine Total 4000 ml General Appearance: Alert/Awake/No Acute Distress Neurological: No Gross deficits Cardiovascular: Normal Rhythm & Peripheral Pulses, Regular Rate and Rhythm Respiratory: No Respiratory Distress, Clear to Auscultation Abdomen: Soft, Non-Tender, Non-Distended (less tenderness than before) Incision: Clean, Dry, Intact, Dermabond : Other (repeat vaginal packing removed with scant blood stain) Extremities: No Cyanosis,Clubbing or Edema Integumentary: Skin Intact without Lesions or Rash Psychological: Alert & Oriented X3 Result Diagram: 06/19/18 0650 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 Home on iron, pain medication prn, stool softeners, and instructions and precautions. F/U in 2 weeks in office. (2) History of robot-assisted laparoscopic hysterectomy (3) Anemia due to acute blood loss (4) Anemia due to chronic blood loss DORITA MARQUES MD Jun 19, 2018 11:06
[2018-06-19] MEDS ORDERED: ONDA4VIA3 PO (11:09)
[2018-06-19] MEDS ORDERED: HYDR2TAB4 PO (11:09)
[2018-06-19] MEDS ORDERED: FERR-53 PO (11:09)
--- NOTE | 2018-06-19 11:14 | OB/GYN Discharge Summary ---
Discharge Summary Reason for Hosp/Final Diag: (1) Other specified aftercare following surgery Hospital Course & Plan: Reviewed discharge precautions. Home on iron, pain medication prn, stool softeners, and instructions and precautions. F/U in 2 weeks in office. (2) History of robot-assisted laparoscopic hysterectomy (3) Anemia due to acute blood loss (4) Anemia due to chronic blood loss Hospital Course & Plan: s/p transfusion of 2 units PRBCs Lates Vital Signs Vital Signs Date Time Temp Pulse Resp B/P (MAP) Pulse Ox O2 Delivery O2 Flow Rate FiO2 06/19/18 09:30 98.6 82 16 107/92 (97) 94 Room Air 06/19/18 03:56 1.0 Weight (Pounds): 185 Result Diagram: 06/19/18 0650 Condition: Improved Discharge: Home, Self Detention Meds Active Scripts Hydromorphone Hcl (HYDROMORPHONE HCL) 2 Mg Tablet, 2 MG PO Q6H PRN for PAIN, #30 TAB 0 Refills Prov:DORITA PEMBERTON MD 06/19/18 Sulfamethoxazole/Trimet 800-160 Mg Tab (BACTRIM DS TABLET) 1 Each Tablet, 1 TAB PO Q12H for 3 Days, #6 TAB Prov:MARK PATEL 06/16/18 Docusate Sodium (COLACE) 100 Mg Capsule, 100 MG PO BID, #20 CAPSULE Prov:MARK PATEL 06/16/18 Oxycodone Hcl/Acetaminophen (PERCOCET 5-325 MG TABLET) 1 Each Tablet, 1 EACH PO Q4-6H PRN for PAIN, #20 TAB 0 Refills TAKE 1 TABLET NEEDED FOR PAIN - NO CLOSER THAN EVERY 4-6 HOURS. Prov:MARK PATEL 06/16/18 Ibuprofen (IBUPROFEN) 800 Mg Tablet, 1 TAB PO Q8H, #30 TAB 0 Refills Take with food every 8 hours. Prov:MARK PATEL 06/16/18 Ibuprofen (IBUPROFEN) 800 Mg Tablet, 800 MG PO Q8H PRN for PAIN, #30 TAB 0 Refills Prov:DORITA PEMBERTON MD 03/15/18 Reported Medications Scopolamine (Scopolamine) 1 Mg/3 Day Patch.td.3, 1 PATCH TOP ONCE 06/16/18 Vits W-Ca,Fe,Fa(<1MG) ( VITAMINS) 1 Each Tablet, 1 EACH PO DAILY, TAB 03/13/18 Levothyroxine Sodium (LEVOTHYROXINE SODIUM) 50 Mcg Tablet, 75 MCG PO QDAY, TAB 02/25/16 Follow up Referrals: [facility] - In Two Weeks @ [facility] with DORITA PEMBERTON MD Follow up with: Dr. Pemberton [phone] Follow up in: 6 wks PP or PO, 2 wks PO Discharge Diet: As Tolerates Discharge Activity: As Tolerates, No Heavy Lifting x 6 wks, No Heavy Lifting > 10lb, Pelvic Rest Copies to: DORITA PEMBERTON MD ; DORITA PEMBERTON MD Jun 19, 2018 11:14
[2018-06-19] MEDS ORDERED: AMPICILLIN/SULBACT (*) 3 GM VL 3 GM in NS(*) 0.9% 100 ML BAG 100 ML IVPB SCH (22:00)
== END 2018-06-19 11:10 | disposition home or self-care (01) | DRG 742 ==
LOC: OR 01:36 → INTOOBSV 18:30 → UNDOADMOB 18:30 → PED 18:30 → OBSVTOIN 18:30 → UNDODISOB 06-19 11:10
PROVIDERS: ADMIT Obstetrics & Gynecology; ATTEND Obstetrics & Gynecology
PROC: 0USG8ZZ Reposition Vagina, Via Natural or Artificial Opening Endoscopic (ICD-10-PCS; 2018-06-16)
PROC: 8E0W4CZ Robotic Assisted Procedure of Trunk Region, Percutaneous Endoscopic Approach (ICD-10-PCS; 2018-06-16)
PROC: 0JQC3ZZ Repair Pelvic Region Subcutaneous Tissue and Fascia, Percutaneous Approach (ICD-10-PCS; 2018-06-16)
PROC: 0UTC4ZZ Resection of Cervix, Percutaneous Endoscopic Approach (ICD-10-PCS; 2018-06-16)
PROC: 0UT94ZZ Resection of Uterus, Percutaneous Endoscopic Approach (ICD-10-PCS; principal; 2018-06-16 13:50)
PROC: 0UT74ZZ Resection of Bilateral Fallopian Tubes, Percutaneous Endoscopic Approach (ICD-10-PCS; 2018-06-16 13:50)
PROC: 0UCG7ZZ Extirpation of Matter from Vagina, Via Natural or Artificial Opening (ICD-10-PCS; 2018-06-17)
DX: N39.3 Stress incontinence (female) (male) (principal); N99.820 Postprocedural hemorrhage of a genitourinary system organ or structure following a genitourinary system procedure; D62 Acute posthemorrhagic anemia; K59.09 Other constipation; N81.6 Rectocele; N94.5 Secondary dysmenorrhea; N92.1 Excessive and frequent menstruation with irregular cycle; Y83.8 Other surgical procedures as the cause of abnormal reaction of the patient, or of later complication, without mention of misadventure at the time of the procedure; Y76.3 Surgical instruments, materials and obstetric and gynecological devices (including sutures) associated with adverse incidents; F41.8 Other specified anxiety disorders; E03.9 Hypothyroidism, unspecified; Z90.49 Acquired absence of other specified parts of digestive tract
CPT/HCPCS: 36415; 36430; 76857; 84703; 85025; 86850; 86900; 86901; 86920; 88307; C1771; G0378; J0131; J0295; J0694; J1100; J1170; J1200; J1630; J1885; J2001; J2250; J2405; J2704; J2795; J3010; J3490; J7040; J7050; P9016

== ENCOUNTER → 2018-10-08 | Outpatient (REF) | payer OTHER, MEDICAID ==
[2018-06-17 08:34] VITALS: BMI 29.0
[~2018-10-08] MED LIST changes: +DOCU-416 PO; +FERR-53 PO; +HYDR2TAB4 PO; +ONDA4VIA3 PO; +OXYC-865 PO; +SCOP1PAT16 TOP
== END ==
LOC: ZZSENDIN 16:10
PROVIDERS: ATTEND Obstetrics & Gynecology
DX: E03.9 Hypothyroidism, unspecified (principal); R53.83 Other fatigue
CPT/HCPCS: 82306; 84436; 84443; 84481